=== PATIENT | male | born 1970 | race Caucasian/White ===

== ENCOUNTER 2017-01-16 07:13 | Emergency (ER) | payer SELFPAY ==
[~2017-01-16] VITALS: Ht 188 cm; Wt 80.5 kg
[~2017-01-16 07:13] MED LIST: DICL75 PO; MMW SSP; PENI500T PO
[2017-01-16 07:15] VITALS: BP 136/94; PULSE 74; RESP 16; TEMP 98.9; O2SAT 97
[2017-01-16] MEDS ORDERED: PENI500T PO (07:28)
--- NOTE | 2017-01-16 07:28 | PD ---
HPI Chief Complaint: Oral / Dental Pain or Problem Time Seen by Provider: 07:24 Travel History International Travel<30 days: No Contact w/Intl Traveler<30days: No Traveled to known affect area: No History of Present Illness HPI 46-year-old male patient presents to the ER today with right mandibular molar pain. He states that he had cracked a tooth several years ago and it causes pain intermittently. He states that he got worse several days ago. He denies any fevers, difficulty swallowing, or any other issues. He states that he just needs to antibiotic. He has been using ibuprofen for pain. Pain is currently rated a 3 out of 10. Modifying Factors: None Associated Signs & Symptoms: Cracked tooth, dental pain Risk Factors: None PFSH Past Medical History Hx Anticoagulant Therapy: No Cancer: No Cardiovascular Problems: No Diabetes: No Diminished Hearing: No Endocrine: No Genitourinary: No Hepatitis: Yes (B) Immune Disorder: No Musculoskeletal: No Neurologic: No Psychiatric: No Reproductive: Yes Respiratory: No Past Surgical History Abdominal Surgery: No Cardiac Surgery: No Ear Surgery: No Endocrine Surgery: No Eye Surgery: No Genitourinary Surgery: Yes (TESTICULAR TORSION) Gynecologic Surgery: No Neurologic Surgery: Yes (2000 LAMI AND MICRODISKECTOMY) Oral Surgery: No Pacemaker: No Thoracic Surgery: No Other Surgery: Yes (testicular torsion repair) Social History Alcohol Use: Yes (HAD A COUPLE OF BEERS TONIGHT) Tobacco Use: Yes (1 PPD) Substance Use: Yes (MARIJUANA) Allergies-Medications (Allergen,Severity, Reaction): Coded Allergies: Seafood (Verified Allergy, Severe, Hives, 01/16/17) Reported Meds & Prescriptions Reported Meds & Active Scripts Active Diclofenac Sodium 75 Mg Tab 75 Mg PO BID PRN Magic Mouthwash-Diphenhy Formula (Lidocaine/Diphenhydr/Alum/Mg/Simeth) Ml 5-10 Ml SSP 5 TIMES A DAY MAGIC MOUTHWASH CONTAINS 1/3 VISCOUS LIDOCAINE, 1/3 MAALOX, AND 1/3 BENADRYL. Pen Vk (Penicillin V Potassium) 500 Mg Tab 500 Mg PO QID Review of Systems Except as stated in HPI: all other systems reviewed are Neg Physical Exam Narrative GENERAL: Well-developed middle age white male patient currently in no acute distress. SKIN: Focused skin assessment warm/dry. HEAD: Atraumatic. Normocephalic. EYES: Pupils equal and round. No scleral icterus. No injection or drainage. ENT: No nasal bleeding or discharge. Mucous membranes pink and moist. DENTAL: Chipped right mandibular molar with significant caries, no significant gingival edema or fluctuance. No malocclusion. NECK: Trachea midline. No JVD. PSYCHIATRIC: Appropriate mood and affect; insight and judgment normal. Data Data Last Documented VS Vital Signs Date Time Temp Pulse Resp B/P Pulse Ox O2 Delivery O2 Flow Rate FiO2 01/16/17 07:22 16 01/16/17 07:15 98.9 74 136/94 97 MDM Medical Decision Making Medical Screen Exam Complete: Yes Emergency Medical Condition: Yes Medical Record Reviewed: Yes Differential Diagnosis Dental pain/rule out dental abscess Narrative Course I do not see any signs of dental abscess formation at this point. He does have a severe dental caries in the right mandibular molar. At this point, my plan would be to release the patient with antibiotics and follow-up to dentist. Return for any worsening in pain or new symptoms as needed. The plan has been discussed with the patient and he states understanding. Diagnosis Primary Impression: Infected dental carries Med/Other Pt SpecificInfo: Prescription(s) given Scripts Penicillin V Potassium 500 Mg Box594 Mg PO Q6H 7 Days Ref 0 Prov:Loretta Dorsey MD 01/16/17 Disposition: 01 DISCHARGE HOME Condition: Stable Loretta Dorsey MD January 16, 2017 07:28
== END 2017-01-16 07:34 | disposition home or self-care (01) ==
LOC: PHED 07:13
DX: K02.9 Dental caries, unspecified (principal); F17.200 Nicotine dependence, unspecified, uncomplicated; Z86.19 Personal history of other infectious and parasitic diseases
CPT/HCPCS: 99282